=== PATIENT | male | born 1975 | race Two or more races ===

== ENCOUNTER 2020-06-24 22:21 | Emergency (ER) | payer BC ==
[~2020-06-24] VITALS: Ht 160 cm; Wt 89.8 kg
[2020-06-25 01:27] VITALS: BP 124/95
[2020-06-25] MEDS ORDERED: KETOROLAC TROMETH 60MG/2ML VIAL IM ONE (01:45)
[2020-06-25] MEDS ORDERED: methylPREDNISolone SOD SUCC 125 MG/2 ML VL IM ONE (01:45)
== END 2020-06-25 02:55 | disposition home or self-care (01) ==
LOC: ER 22:25 → EDBD 22:25 → ER 06-25 02:54
DX: S83.91XA Sprain of unspecified site of right knee, initial encounter (principal); F17.210 Nicotine dependence, cigarettes, uncomplicated; M25.461 Effusion, right knee; W17.89XA Other fall from one level to another, initial encounter; Y93.89 Activity, other specified; Y92.096 Garden or yard of other non-institutional residence as the place of occurrence of the external cause; Y99.8 Other external cause status
CPT/HCPCS: 29505; 73562; 96372; 99284; J1885; J2930